=== PATIENT | female | born 1995 | race Caucasian/White ===

== ENCOUNTER 2016-06-23 23:19 | Emergency (ER) | payer OTHER ==
[~2016-06-23] VITALS: Ht 152.4 cm; Wt 66.0 kg
[~2016-06-23 23:19] MED LIST: IBUP-232 PO; PROM25SU8 PO
[2016-06-23 23:21] VITALS: BP 138/87; PULSE 93; RESP 15; TEMP 98.8; O2SAT 99
--- NOTE | 2016-06-23 23:44 | PD ---
HPI Chief Complaint: Cold / Flu Symptoms Time Seen by Provider: 23:44 Travel History International Travel<30 days: No Contact w/Intl Traveler<30days: No Traveled to known affect area: No History of Present Illness HPI 21 year-old female history of asthma presents to the emergency department for evaluation of a dry cough the last 2-3 days. Patient states she has had no fever or chills. States that she feels as though her chest is tight, like when her asthma "acts up." Patient states she does not have her inhaler she has run out of this. Has not followed up with primary care provider. Denies tobacco cigarette smoking. Denies any recent illnesses. She has no other symptoms to report. PFSH Past Medical History Anemia: Yes Autoimmune Disease: No Blood Disorders: No Anxiety: No Depression: No Cardiovascular Problems: No Diminished Hearing: No Gastrointestinal Disorders: No Genitourinary: No Musculoskeletal: No Neurologic: No Psychiatric: No Respiratory: No Immunizations Current: Yes ?: Not LMP: 06/16/16 : 2 Para: 1 : 1 Past Surgical History Abdominal Surgery: Yes (APPENDECTOMY 02/04/08) Appendectomy: Yes (01/2008) Section: Yes Hysterectomy: No Other Surgery: Yes Social History Alcohol Use: No Tobacco Use: No (RARELY) Substance Use: Yes (MARIJUANA, OCCASIONALLY) Allergies-Medications (Allergen,Severity, Reaction): Coded Allergies: Amoxicillin (Verified Allergy, Severe, ANAPHYLAXIS, 06/23/16) Erythromycin (Verified Allergy, Severe, Hives, 06/23/16) Zithromax (Verified Allergy, Severe, HIVES, 06/23/16) Reported Meds & Prescriptions Reported Meds & Active Scripts Active Proair Hfa 8.5 GM Inh (Albuterol Sulfate) 90 Mcg/Act Aer 2 Puff INH Q4HR PRN 108 mcg/actuation Review of Systems Except as stated in HPI: all other systems reviewed are Neg Physical Exam Narrative GENERAL: Well-nourished female patient, in no acute distress SKIN: Focused skin assessment warm/dry. HEAD: Atraumatic. Normocephalic. EYES: Pupils equal and round. No scleral icterus. No injection or drainage. ENT: No nasal bleeding or discharge. Mucous membranes pink and moist. NECK: Trachea midline. No JVD. CARDIOVASCULAR: Elevated rate and rhythm. No murmur appreciated. RESPIRATORY: No accessory muscle use. Clear to auscultation. Breath sounds equal bilaterally. GASTROINTESTINAL: Abdomen soft, non-tender, nondistended. Hepatic and splenic margins not palpable. MUSCULOSKELETAL: No obvious deformities. No clubbing. No cyanosis. No edema. NEUROLOGICAL: Awake and alert. No obvious cranial nerve deficits. Motor grossly within normal limits. Normal speech. PSYCHIATRIC: Appropriate mood and affect; insight and judgment normal. Data Data Last Documented VS Vital Signs Date Time Temp Pulse Resp B/P Pulse Ox O2 Delivery O2 Flow Rate FiO2 06/23/16 23:21 98.8 93 15 138/87 99 Room Air Orders Dexamethasone Inj (Decadron Inj) (06/23/16 23:45) Albuterol-Ipratropium Neb (Duoneb Neb) (06/23/16 23:45) MDM Medical Decision Making Medical Screen Exam Complete: Yes Emergency Medical Condition: Yes Medical Record Reviewed: Yes Differential Diagnosis Common cold versus cough versus bronchospasm versus asthma exacerbation Narrative Course 21 year-old female presents to emergency department for evaluation. Patient appears without distress. Her vital signs are stable. Patient is given a nebulized treatment and verbalizes a sensation of released and the tightness of her chest. She is given prescription for albuterol. She is encouraged follow- up with primary care provider. She agrees to return immediately if any acute worsening of symptoms. Diagnosis Primary Impression: Cough Additional Impressions: Bronchospasm Asthma, stable Qualified Code: J45.20 - Asthma, stable, mild intermittent Referrals: Primary Care Physician Patient Instructions: Asthma (ED), General Instructions Additional Instructions: Follow-up with a primary care provider Return immediately with any acute worsening of symptoms Med/Other Pt SpecificInfo: Prescription(s) given Scripts Albuterol 8.5 GM Inh (Proair Hfa 8.5 GM Inh)90 Mcg/Act Aer2 Puff INH Q4HR PRN ( SHORTNESS OF BREATH) #1 INHALER Ref 0 108 mcg/actuation Prov:Roma Perkins 06/24/16 Disposition: 01 DISCHARGE HOME Condition: Stable Roma Perkins June 23, 2016 23:44
[2016-06-23] MEDS ORDERED: DEXAMETHASONE SOD PHOS 20 MG/5 ML VIAL IM ONE (23:45)
[2016-06-23] MEDS ORDERED: RESP: ALBUTEROL 2.5 MG/IPRATROPIUM 0.5 MG NEB (SCH) NEB ONE (23:45)
[2016-06-24] MEDS ORDERED: ALBUAER3 INH (00:05)
== END 2016-06-24 00:31 ==
LOC: NEPK 23:19
DX: J45.20 Mild intermittent asthma, uncomplicated (principal)
CPT/HCPCS: 94664; 96372; 99283; J1100

== ENCOUNTER 2016-11-04 09:23 | Emergency (ER) | payer OTHER ==
[~2016-11-04] VITALS: Ht 157.5 cm; Wt 65.0 kg
[~2016-11-04 09:23] MED LIST changes: +ALBUAER3 INH; -IBUP-232 PO; -PROM25SU8 PO
[2016-11-04 09:24] VITALS: BP 129/75; PULSE 81; RESP 18; TEMP 98.8; O2SAT 100
[2016-11-04] MEDS ORDERED: SODIUM CHLOR 0.9% 1000 ML INJ 1,000 ML IV ONE (09:46)
--- NOTE | 2016-11-04 09:51 | PD ---
HPI Chief Complaint: Abdominal Pain Time Seen by Provider: 09:42 Travel History International Travel<30 days: No Contact w/Intl Traveler<30days: No Traveled to known affect area: No History of Present Illness HPI Patient is a 21-year-old female who presents to emergency room with complaint of abdominal pain. Patient reports that she has been having lower abdominal pain which is been constant for the past 3 months. Patient reports that she has history of ovarian cysts, patient is concerned for possible ovarian cyst. Patient reports that her lower abdomen feels crampy in nature. Reports that she does have history of an appendectomy in the past. Patient denies any fevers or chills, denies any nausea or vomiting. She reports that she has noticed some vaginal discharge as well as some red lesions to her vagina. Denies any dysuria, urinary urgency or frequency. PFSH Past Medical History Anemia: Yes Autoimmune Disease: No Blood Disorders: No Anxiety: No Depression: No Cardiovascular Problems: No Diminished Hearing: No Gastrointestinal Disorders: No Genitourinary: No Heparin Induced Thrombocytopen: No Musculoskeletal: No Neurologic: No Psychiatric: No Respiratory: No Immunizations Current: Yes ?: Unknown LMP: 09/16/16 : 2 Para: 1 : 1 Past Surgical History Abdominal Surgery: Yes (APPENDECTOMY 02/04/08) Appendectomy: Yes (01/2008) Section: Yes Hysterectomy: No Other Surgery: Yes Social History Alcohol Use: No Tobacco Use: No (RARELY) Substance Use: Yes (MARIJUANA, OCCASIONALLY) Allergies-Medications (Allergen,Severity, Reaction): Coded Allergies: amoxicillin (Verified Allergy, Severe, ANAPHYLAXIS, 11/04/16) azithromycin (Verified Allergy, Severe, HIVES, 11/04/16) erythromycin base (Verified Allergy, Severe, Hives, 11/04/16) Reported Meds & Prescriptions Reported Meds & Active Scripts Active No Active Prescriptions or Reported Medications Review of Systems General / Constitutional: No: Fever Eyes: No: Visual changes HENT: No: Headaches Cardiovascular: No: Chest Pain or Discomfort Respiratory: No: Shortness of Breath Gastrointestinal: Positive: Abdominal Pain, No: Nausea, Vomiting Genitourinary: Positive: Pelvic Pain, Discharge, No: Urgency, Frequency, Dysuria, Vaginal Bleeding Musculoskeletal: No: Pain Skin: No Rash Neurologic: No: Weakness Psychiatric: No: Depression Endocrine: No: Polydipsia Hematologic/Lymphatic: No: Easy Bruising Physical Exam Narrative GENERAL: No acute distress, nontoxic SKIN: Focused skin assessment warm/dry. HEAD: Atraumatic. Normocephalic. EYES: Pupils equal and round. No scleral icterus. No injection or drainage. ENT: No nasal bleeding or discharge. Mucous membranes pink and moist. NECK: Trachea midline. No JVD. CARDIOVASCULAR: Regular rate and rhythm. No murmur appreciated. RESPIRATORY: No accessory muscle use. Clear to auscultation. Breath sounds equal bilaterally. GASTROINTESTINAL: Abdomen soft, non-tender, nondistended. Hepatic and splenic margins not palpable. : Patient with herpetic lesions to perineum, no cmt or adnexal tenderness, thick white vaginal discharge, exam performed with RN at bedside MUSCULOSKELETAL: No obvious deformities. No clubbing. No cyanosis. No edema. NEUROLOGICAL: Awake and alert. No obvious cranial nerve deficits. Motor grossly within normal limits. Normal speech. PSYCHIATRIC: Appropriate mood and affect; insight and judgment normal. Data Data Last Documented VS Vital Signs Date Time Temp Pulse Resp B/P (MAP) Pulse Ox O2 Delivery O2 Flow Rate FiO2 11/04/16 09:24 98.8 81 18 129/75 (93) 100 Room Air Orders Orders Complete Blood Count With Diff (11/04/16 09:46) Comprehensive Metabolic Panel (11/04/16 09:46) Gc And Chlamydia Pcr (11/04/16 09:46) Wet Prep Profile (11/04/16 09:46) Urinalysis - C+S If Indicated (11/04/16 09:46) Iv Access Insert/Monitor (11/04/16 09:46) Ecg Monitoring (11/04/16 09:46) Sodium Chloride 0.9% Flush (Ns Flush) (11/04/16 10:00) Sodium Chlor 0.9% 1000 Ml Inj (Ns 1000 M (11/04/16 09:46) Us Pelvis Comp W Doppler (11/04/16 09:46) Ed Urine Pregnancytest Poc (11/04/16 09:46) Labs Laboratory Tests Test 11/04/16 10:10 White Blood Count 7.8 TH/MM3 Red Blood Count 3.90 MIL/MM3 Hemoglobin 12.3 GM/DL Hematocrit 37.0 % Mean Corpuscular Volume 95.0 FL Mean Corpuscular Hemoglobin 31.5 PG Mean Corpuscular Hemoglobin Concent 33.2 % Red Cell Distribution Width 12.3 % Platelet Count 274 TH/MM3 Mean Platelet Volume 7.6 FL Neutrophils (%) (Auto) 57.7 % Lymphocytes (%) (Auto) 29.7 % Monocytes (%) (Auto) 9.8 % Eosinophils (%) (Auto) 2.3 % Basophils (%) (Auto) 0.5 % Neutrophils # (Auto) 4.5 TH/MM3 Lymphocytes # (Auto) 2.3 TH/MM3 Monocytes # (Auto) 0.8 TH/MM3 Eosinophils # (Auto) 0.2 TH/MM3 Basophils # (Auto) 0.0 TH/MM3 CBC Comment DIFF FINAL Differential Comment Urine Color YELLOW Urine Turbidity CLEAR Urine pH 6.0 Urine Specific [place] 1.025 Urine Protein NEG mg/dL Urine Glucose (UA) NEG mg/dL Urine Ketones NEG mg/dL Urine Occult Blood NEG Urine Nitrite NEG Urine Bilirubin NEG Urine Urobilinogen LESS THAN 2.0 MG/DL Urine Leukocyte Esterase SMALL Urine RBC LESS THAN 1 /hpf Urine WBC 2 /hpf Urine Squamous Epithelial Cells 2 /hpf Urine Mucus FEW /lpf Microscopic Urinalysis Comment CULT NOT INDICATED Blood Urea Nitrogen 11 MG/DL Creatinine 0.48 MG/DL Random Glucose 93 MG/DL Total Protein 7.0 GM/DL Albumin 3.7 GM/DL Calcium Level 8.6 MG/DL Alkaline Phosphatase 42 U/L Aspartate Amino Transf (AST/SGOT) 14 U/L Alanine Aminotransferase (ALT/SGPT) 18 U/L Total Bilirubin 0.3 MG/DL Sodium Level 140 MEQ/L Potassium Level 3.8 MEQ/L Chloride Level 108 MEQ/L Carbon Dioxide Level 27.9 MEQ/L Anion Gap 4 MEQ/L Estimat Glomerular Filtration Rate 165 ML/MIN [facility] Medical Decision Making Medical Screen Exam Complete: Yes Emergency Medical Condition: Yes Medical Record Reviewed: Yes Interpretation(s) Vital Signs Date Time Temp Pulse Resp B/P (MAP) Pulse Ox O2 Delivery O2 Flow Rate FiO2 11/04/16 09:24 98.8 81 18 129/75 (93) 100 Room Air Differential Diagnosis Differential includes gastroenteritis, cervicitis, ovarian cyst, ovarian torsion though unlikely, UTI, Narrative Course 21-year-old female who presents to emergency room with complaint of abdominal pain for the past 3 months. Patient also reports some vaginal discharge as well as red lesions to her vagina. Lab work ordered, pelvic ultrasound ordered as patient does have history of a ovarian cyst. Plan to perform pelvic exam to evaluate for possible cervicitis. Vital Signs Date Time Temp Pulse Resp B/P (MAP) Pulse Ox O2 Delivery O2 Flow Rate FiO2 11/04/16 09:24 98.8 81 18 129/75 (93) 100 Room Air Laboratory Tests Test 11/04/16 10:10 White Blood Count 7.8 TH/MM3 (4.0-11.0) Red Blood Count 3.90 MIL/MM3 (4.00-5.30) Hemoglobin 12.3 GM/DL (11.6-15.3) Hematocrit 37.0 % (35.0-46.0) Mean Corpuscular Volume 95.0 FL (80.0-100.0) Mean Corpuscular Hemoglobin 31.5 PG (27.0-34.0) Mean Corpuscular Hemoglobin Concent 33.2 % (32.0-36.0) Red Cell Distribution Width 12.3 % (11.6-17.2) Platelet Count 274 TH/MM3 (150-450) Mean Platelet Volume 7.6 FL (7.0-11.0) Neutrophils (%) (Auto) 57.7 % (16.0-70.0) Lymphocytes (%) (Auto) 29.7 % (9.0-44.0) Monocytes (%) (Auto) 9.8 % (0.0-8.0) Eosinophils (%) (Auto) 2.3 % (0.0-4.0) Basophils (%) (Auto) 0.5 % (0.0-2.0) Neutrophils # (Auto) 4.5 TH/MM3 (1.8-7.7) Lymphocytes # (Auto) 2.3 TH/MM3 (1.0-4.8) Monocytes # (Auto) 0.8 TH/MM3 (0-0.9) Eosinophils # (Auto) 0.2 TH/MM3 (0-0.4) Basophils # (Auto) 0.0 TH/MM3 (0-0.2) CBC Comment DIFF FINAL Differential Comment Urine Color YELLOW (YELLW/STRAW) Urine Turbidity CLEAR (CLEAR) Urine pH 6.0 (5.0-8.5) Urine Specific [place] 1.025 (1.002-1.035) Urine Protein NEG mg/dL (NEG-TRACE) Urine Glucose (UA) NEG mg/dL (NEG) Urine Ketones NEG mg/dL (NEG) Urine Occult Blood NEG (NEG) Urine Nitrite NEG (NEG) Urine Bilirubin NEG (NEG) Urine Urobilinogen LESS THAN 2.0 MG/DL (LESS Urine Leukocyte Esterase SMALL (NEG) Urine RBC LESS THAN 1 /hpf (0-3) Urine WBC 2 /hpf (0-5) Urine Squamous Epithelial Cells 2 /hpf (0-5) Urine Mucus FEW /lpf (OCC) Microscopic Urinalysis Comment CULT NOT INDICATED Blood Urea Nitrogen 11 MG/DL (7-18) Creatinine 0.48 MG/DL (0.50-1.00) Random Glucose 93 MG/DL (74-106) Total Protein 7.0 GM/DL (6.4-8.2) Albumin 3.7 GM/DL (3.4-5.0) Calcium Level 8.6 MG/DL (8.5-10.1) Alkaline Phosphatase 42 U/L (45-117) Aspartate Amino Transf (AST/SGOT) 14 U/L (16-38) Alanine Aminotransferase (ALT/SGPT) 18 U/L (9-42) Total Bilirubin 0.3 MG/DL (0.2-1.0) Sodium Level 140 MEQ/L (136-145) Potassium Level 3.8 MEQ/L (3.5-5.1) Chloride Level 108 MEQ/L (98-107) Carbon Dioxide Level 27.9 MEQ/L (21.0-32.0) Anion Gap 4 MEQ/L (5-15) Estimat Glomerular Filtration Rate 165 ML/MIN (>89) Last Impressions Pelvis Ultrasound 11/04/16 0946 Signed Impressions: Service Date/Time: October 10:21 - CONCLUSION: Pelvic ultrasound within normal limits. Trace Hair MD All labs and all studies reviewed patient in detail. Patient will follow up with all cultures from today. She will return to ER as needed. Diagnosis Primary Impression: pelvic pain Additional Impressions: Abdominal pain Qualified Codes: R10.30 - Lower abdominal pain, unspecified Herpetic lesions Patient Instructions: General Instructions Additional Instructions: Please provide patient with a copy of her lab work and studies at discharge Please follow-up with all cultures from today, if cultures are positive, all sexual parties will need to be treated Return to emergency room if symptoms worsen or progress Return to the emergency room as needed Please follow up with your intelligence engineer as soon as possible Apply a small amount of lidocaine to area of inflammation and pain Scripts Lidocaine Topical (Lidocaine Topical) 2 % Jel 1 APPLIC TOPICAL DAILY for Pain Management for 10 Days, GM 0 Refills Prov: Carolee Flores DO 11/04/16 Acyclovir (Acyclovir) 400 Mg Tab 400 MG PO TID for Mgmt Viral Infection for 10 Days, TAB 0 Refills Prov: Carolee Flores DO 11/04/16 Disposition: 01 DISCHARGE HOME Condition: Stable Carolee Flores DO Nov 04, 2016 09:51
[2016-11-04] MEDS ORDERED: SODIUM CHLORIDE 0.9% FLUSH 10 ML FLUSH IVF PRN (10:00)
[2016-11-04 10:39] LABS: AUTOMATED NEUTROPHIL # 4.5 TH/MM3 (1.8-7.7); BASOPHIL % 0.5 % (0.0-2.0); EOSINOPHIL # 0.2 TH/MM3 (0-0.4); EOSINOPHIL % 2.3 % (0.0-4.0); HEMO FLAGS DIFF FINAL; LYMPH % 29.7 % (9.0-44.0); LYMPHOCYTE # 2.3 TH/MM3 (1.0-4.8); MEAN CORPUSCULAR HEMOGLOBIN 31.5 PG (27.0-34.0); MEAN CORPUSCULAR HGB CONC 33.2 % (32.0-36.0); MONO % 9.8 % (0.0-8.0); NEUT % 57.7 % (16.0-70.0); PLATELET COUNT 274 TH/MM3 (150-450); RED CELL DISTRIBUTION WIDTH 12.3 % (11.6-17.2); WHITE BLOOD COUNT 7.8 TH/MM3 (4.0-11.0)
[2016-11-04 10:42] LABS: BLOOD, URINE NEG (NEG); GLUCOSE,URINE NEG (NEG); KETONE, URINE NEG (NEG); MUCUS URINE FEW /lpf (OCC); NITRITE,URINE NEG (NEG); SQUAMOUS EPITHELIAL CELL URINE 2 /hpf (0-5); URINE COLOR YELLOW (YELLW/STRAW)
[2016-11-04 10:43] LABS: COMMENT (UR) CULT NOT INDICATED; CULTURE IF INDICATED CULT NOT INDICATED
[2016-11-04 10:49] LABS: ANION GAP 4 MEQ/L (5-15); AST (GOT) 14 U/L (16-38); BICARBONATE 27.9 MEQ/L (21.0-32.0); BLOOD UREA NITROGEN 11 MG/DL (7-18); CHLORIDE 108 MEQ/L (98-107); GLOMERULAR FILTRATION RATE 165 ML/MIN (>89); POTASSIUM 3.8 MEQ/L (3.5-5.1); SODIUM (NA) 140 MEQ/L (136-145)
[2016-11-04 10:50] LABS: ALT (GPT) 18 U/L (9-42)
[2016-11-04 10:53] LABS: ALKALINE PHOSPHATASE 42 U/L (45-117); TOTAL BILIRUBIN ADULT 0.3 MG/DL (0.2-1.0)
--- NOTE | 2016-11-04 11:26 | RADRPT ---
EXAM DATE/TIME: 11/04/2016 10:21 [place] COMPARISON: No previous studies available for comparison. INDICATIONS : Ovarian torsion. MEDICAL HISTORY : Anemia. Pelvic pain. Ovarian cysts. SURGICAL HISTORY : Appendectomy. ENCOUNTER: Initial ACUITY: 3 months PAIN SCORE: 6/10 LOCATION: Right pelvis MEASUREMENTS: UTERUS: 8.8 x 5.5 x 3.7 cm ENDOMETRIAL STRIPE: 6 mm RIGHT OVARY: 3.1 x 3.2 x 2.6 cm LEFT OVARY: 3.5 x 2.8 x 1.3 cm .MAURILIO CHOI MR#: [id number] Exam Dt/Desc: November 04, 2016 US PELVIS,COMP,W DOPPLER FINDINGS: UTERUS: The myometrium has homogeneous echotexture without mass. RIGHT OVARY: Ovary contains no mass or significant cystic lesion. LEFT OVARY: Ovary contains no mass or significant cystic lesion. MISCELLANEOUS: No free fluid. CONCLUSION: Pelvic ultrasound within normal limits. Trace Hair MD on November 04, 2016 at 11:24 Board Certified Radiologist. This report was verified electronically.
[2016-11-04] MEDS ORDERED: ACYC400T PO (12:51)
[2016-11-04] MEDS ORDERED: LIDO2GEL11 TOPICAL (12:52)
[2016-11-04 13:10] VITALS: BP 118/72
[2016-11-04 16:50] LABS: CHLAMYDIA PCR NOT DETECTED (NOT DETECT); NEISSERIA PCR NOT DETECTED (NOT DETECT)
== END 2016-11-04 13:15 | disposition home or self-care (01) ==
LOC: NEPD 09:23
DX: R10.2 Pelvic and perineal pain (principal); R10.30 Lower abdominal pain, unspecified
CPT/HCPCS: 76856; 80053; 81001; 84703; 85025; 87210; 87491; 87591; 93975; 96360; 99285; J7030